=== PATIENT | female | born 1980 | race Caucasian/White ===

== ENCOUNTER 2019-01-01 20:16 | Emergency (ER) | payer OTHER ==
[~2019-01-01] VITALS: Ht 152.4 cm; Wt 61.3 kg
[~2019-01-01 20:16] MED LIST: OFLO5DRO46 LEFT EYE
[2019-01-01 20:46] VITALS: BP 157/78; PULSE 56; RESP 16; Ht 152.4 cm; Wt 61.3 kg
[2019-01-01] MEDS ORDERED: TETRACAINE 0.5% 4 ML OPH LEFT EYE SCH (22:00)
[2019-01-01] MEDS ORDERED: FLUORESCEIN STRIP LEFT EYE ONE (22:00)
[2019-01-01] MEDS ORDERED: DIPHTH/TET/ACEL PERTUSS (ADULT) 0.5 ML VIAL IM* ONE (22:00)
== END 2019-01-01 22:46 | disposition home or self-care (01) ==
LOC: FTE 20:16
DX: S05.92XA Unspecified injury of left eye and orbit, initial encounter (principal); W27.0XXA Contact with workbench tool, initial encounter; Y92.9 Unspecified place or not applicable; Z23 Encounter for immunization
CPT/HCPCS: 90471; 90715; Z7502; Z7610